=== PATIENT | female | born 1950 | race Caucasian/White ===

== ENCOUNTER 2020-05-02 05:50 | Day surgery (SDC) | payer MEDICARE ==
--- NOTE | 2020-04-23 12:59 | NUR ---
ekg abnormal ekg reported to dr. umaña. no further orders given, ok to proceed with planned surgery
--- NOTE | 2020-04-23 13:32 | NUR ---
MED DR. CHILD NOTIFY THAT PT TOOK PLAVIX THIS MORNING SURGERY RESCHEDULED FOR MAY [address] CHILD, PT WAS MADE AWARE
[2020-05-02] VITALS (17 sets, daily range): BP systolic 86–140; BP diastolic 35–66
[~2020-05-02] VITALS: Ht 160 cm; Wt 82.5 kg
[~2020-05-02 05:50] MED LIST: ASPI-556 PO; ATOR40TA71 PO; CALC-484 PO; CARV6.2579 PO; CEFAZOLIN SODIUM 1 GM VIAL IVP SCH; CHOL500045 PO; CITA-107 PO; CLOP75TA14 PO; GABA600T10 PO; HYDR-4379 PO; INSLAN SQ; INSU100I35 SQ; ISOS30TA6 PO; LEVO50 PO; LOSA1TAB54 PO; OMEG1CAP67 PO; OMEP20CA12 PO; VITA1CAP85 PO
[2020-05-02] MEDS ORDERED: SODIUM CHLORIDE 0.9% 1000ML 1,000 ML IV ONE (06:35)
[2020-05-02] MEDS ORDERED: DEXTROSE 50%-WATER 25 GM/50 ML VIAL ONE ×2 (06:49→09:16)
[2020-05-02] MEDS ORDERED: LIDOCAINE HCL-MPF 0.5% 50ML VIAL IJ ONE (06:57)
[2020-05-02] MEDS ORDERED: MIDAZOLAM HCL 1 MG/ML 2ML VIAL ONE ×2 (07:00→08:33)
[2020-05-02] MEDS ORDERED: FENTANYL CITRATE PF 50 MCG/1 ML 2ML VIAL ONE ×2 (07:01→08:06)
--- NOTE | 2020-05-02 10:06 | NUR ---
POST-PROCEDURE RECEIVED FROM RR VIA STRETCHER TO DAY 3. CONNECTED TO CONTINUOUS CARDIOPULMONARY MONITORING. SIDE RAILS UP X2, STRETCHER IN LOWEST POSITION, AND CALL LIGHT W/IN REACH. RIGHT HAND WITH YOANA WRAP DRESSING CLEAN, DRY, AND INTACT;ELEVATED. DENIES PAIN.
--- NOTE | 2020-05-02 10:10 | NUR ---
DISCHARGE INSTRUCTIONS DAY PT DISCHARGE INSTRUCTION SHEET, DR. CHILD'S DISCHARGE INSTRUCTIONS, MED REC, AND PT SUMMARY REVIEWED WITH ZHANNA VINES/PTS . ZHANNA VERBALIZED UNDERSTANDING. OPPORTUNITY GIVEN TO ASK QUESTIONS. QUESTIONS ADDRESSED.
--- NOTE | 2020-05-02 10:45 | NUR ---
ACTIVITY UP TO EDGE OF BED WITH MINIMAL ASSIST X1. DENIES DIZZINESS OR NAUSEA.
--- NOTE | 2020-05-02 10:51 | NUR ---
DISCHARGE DISCHARGED VIA W/C. AWAKE IN NO ACUTE DISTRESS.
== END 2020-05-02 10:45 | disposition home or self-care (01) ==
LOC: DAH 05:50
PROVIDERS: ATTEND Neurological Surgery
DX: G56.01 Carpal tunnel syndrome, right upper limb (principal); G47.33 Obstructive sleep apnea (adult) (pediatric); I25.10 Atherosclerotic heart disease of native coronary artery without angina pectoris; I10 Essential (primary) hypertension; E11.9 Type 2 diabetes mellitus without complications; Z88.2 Allergy status to sulfonamides; Z11.59 Encounter for screening for other viral diseases
CPT/HCPCS: 64721; 82948 ×4; 93005; A4213; A4215 ×2; A4216; A4221; A4222; A4223 ×2; A4663; A6260; J0690; J2250 ×2; J3010 ×2; J3490; J7030 ×2; J7070 ×2; U0003; 36415; 87635; 96374

== ENCOUNTER 2020-05-08 09:30 | Emergency (ER) | payer MEDICARE ==
[~2020-05-08 09:30] MED LIST changes: -CEFAZOLIN SODIUM 1 GM VIAL IVP SCH; -CLOP75TA14 PO
[2020-05-08 09:53] LABS: BASOPHILS % (AUTO) 0.3 % (0.0-5.0); EOSINOPHILS % (AUTO) 1.1 % (0.0-8.0); HEMATOCRIT 33.6 % (36-48); LYMPHOCYTES % (AUTO) 7.5 % (21.0-51.0); MEAN CORPUSCULAR HEMOGLOBIN 31.8 pg (27.0-33.0); MEAN CORPUSCULAR HGB CONC 34.8 g/dL (32.0-36.0); MEAN CORPUSCULAR VOLUME 91.3 fL (79-99); MONOCYTES % (AUTO) 7.9 % (3.0-13.0); NEUTROPHILS % (AUTO) 82.6 % (40.0-77.0); PLATELET COUNT (AUTO) 253 K/uL (130-400); RED BLOOD CELL COUNT(AUTO) 3.68 MIL/uL (4.00-5.50); RED CELL DISTRIBUTION WIDTH 12.3 % (11.0-15.5); WHITE BLOOD COUNT (AUTO) 21.4 K/uL (4.8-10.8)
[2020-05-08] MEDS ORDERED: SODIUM CHLORIDE 0.9% 1000ML 1,000 ML IV ONE (10:02)
[2020-05-08] MEDS ORDERED: MORPHINE SULFATE 2 MG/ML 1ML SYG ONE (10:02)
[2020-05-08] MEDS ORDERED: ONDANSETRON HCL 4 MG/2 ML VIAL ONE (10:02)
[2020-05-08 10:06] LABS: CREATININE 1.3 mg/dL (0.5-1.5); POTASSIUM 3.4 mmol/L (3.5-5.1)
[2020-05-08 10:11] LABS: ALBUMIN 2.8 g/dL (3.5-5.0); BILIRUBIN,TOTAL 0.8 mg/dL (0.2-1.0)
[2020-05-08] MEDS ORDERED: ASPIRIN 325 MG TABLET ONE (11:29)
[2020-05-08 13:01] LABS: APPEARANCE,URINE Cloudy (CLEAR); BILIRUBIN,URINE Negative (NEGATIVE); COLOR,URINE Yellow (YELLOW); GLUCOSE, URINE (UA) Negative (NEGATIVE); KETONES,URINE Negative (NEGATIVE); LEUKOCYTE ESTERASE ,URINE Trace (NEGATIVE); NITRATE,URINE Negative (NEGATIVE); OCCULT BLOOD,URINE Negative (NEGATIVE); PROTEIN,URINE POS 2+ mg/dL (NEGATIVE)
[2020-05-08 13:13] LABS: BACTERIA,URINE Few /HPF (None Seen); RBC,URINE 0-1 /HPF (0-1); SQUAMOUS EPITHELIAL CELL,UR Moderate /HPF (0-2)
[2020-05-08] MEDS ORDERED: ZOSYN 3.375GM+NS 50ML 50 ML IV ONE (13:26)
[2020-05-08] MEDS ORDERED: MORPHINE SULFATE 4 MG/1ML SYG ONE ×2 (13:31→17:28)
== END 2020-05-08 17:36 | disposition short-term general hospital (02) ==
LOC: EDH 09:30
DX: I21.4 Non-ST elevation (NSTEMI) myocardial infarction (principal); K81.0 Acute cholecystitis; R19.7 Diarrhea, unspecified; I10 Essential (primary) hypertension; E11.9 Type 2 diabetes mellitus without complications; E07.9 Disorder of thyroid, unspecified; I25.2 Old myocardial infarction; I73.9 Peripheral vascular disease, unspecified; Z72.0 Tobacco use; Z98.890 Other specified postprocedural states
CPT/HCPCS: 36415; 74176; 76705; 80053; 81001; 82948; 83690; 84484 ×2; 85025; 87088; 93005; 96361; 96365; 96366; 96375; 96376; 99291; J2270 ×2; J2405; J2543; J7030